=== PATIENT | female | born 1965 | race Hispanic/Latino ===

== ENCOUNTER 2023-03-23 11:48 | Emergency (ER) | payer MEDICAID ==
[~2023-03-23] VITALS: Ht 162.6 cm; Wt 116.6 kg
[2023-03-23] MEDS ORDERED: KETOROLAC 15MG/ML VIAL (15MG/ML) IM ONE (12:00)
[2023-03-23] MEDS ORDERED: CYCLOBENZAPRINE HCL 10 MG TABLET PO ONE (12:00)
[2023-03-23 14:28] LABS: APPEARANCE,URINE CLEAR (CLEAR); BILIRUBIN,URINE NEGATIVE (NEGATIVE); COLOR,URINE LIGHT-YELLOW (YELLOW); GLUCOSE, URINE (UA) NEGATIVE (NEGATIVE); KETONES,URINE NEGATIVE (NEGATIVE); LEUKOCYTE ESTERASE ,URINE 75 Leu/uL (NEGATIVE); NITRATE,URINE NEGATIVE (NEGATIVE); OCCULT BLOOD,URINE NEGATIVE (NEGATIVE); PROTEIN,URINE NEGATIVE (NEGATIVE); UROBILINOGEN,URINE 0.2 mg/dL (0.2-1.0)
[2023-03-23 14:30] LABS: ADD UA MICROSCOPIC YES
[2023-03-23 14:39] LABS: BACTERIA,URINE RARE /HPF (None Seen); MUCUS,URINE RARE LPF (None Seen); SQUAMOUS EPITHELIAL CELL,UR RARE /HPF (0-2)
[2023-03-23] MEDS ORDERED: CEPH500B PO (15:01)
[2023-03-23] MEDS ORDERED: CYCL-309 PO (15:01)
[2023-03-23 15:19] VITALS: BP 164/82; PULSE 84; RESP 16; O2SAT 97
== END 2023-03-23 15:25 | disposition home or self-care (01) ==
LOC: EDH 11:48
DX: S39.012A Strain of muscle, fascia and tendon of lower back, initial encounter (principal); N39.0 Urinary tract infection, site not specified; X58.XXXA Exposure to other specified factors, initial encounter; Y93.89 Activity, other specified; Y92.89 Other specified places as the place of occurrence of the external cause; Y99.8 Other external cause status
CPT/HCPCS: 99284; 87088; 81001; 72110; 96372; J1885 ×2